=== PATIENT | female | born 1940 | race Caucasian/White ===

== ENCOUNTER 2018-02-23 18:26 | Emergency (ER) | payer MEDICARE ==
[~2018-02-23] VITALS: Ht 157.5 cm; Wt 85.0 kg
[~2018-02-23 18:26] MED LIST: ACYC400T PO; ALPR.25 PO; CHLO4TAB PO; CLON.1 PO; COZA50TA PO; DILT1TAB2 PO; HYDR-3533 PO; LEXA10TA PO; MONT10TA2 PO; ZANT150T2 PO
[2018-02-23 18:51] VITALS: BP 134/62; PULSE 74; RESP 16; TEMP 97.9; O2SAT 97
[2018-02-23 23:11] LABS: AUTOMATED NEUTROPHIL # 10.3 TH/MM3 (1.8-7.7); BASOPHIL # 0.1 TH/MM3 (0-0.2); BASOPHIL % 0.4 % (0.0-2.0); EOSINOPHIL # 0.1 TH/MM3 (0-0.4); EOSINOPHIL % 0.5 % (0.0-4.0); HEMATOCRIT 41.2 % (35.0-46.0); HEMOGLOBIN 13.8 GM/DL (11.6-15.3); LYMPH % 14.6 % (9.0-44.0); LYMPHOCYTE # 1.9 TH/MM3 (1.0-4.8); MEAN CELL VOLUME 87.3 FL (80.0-100.0); MEAN CORPUSCULAR HEMOGLOBIN 29.1 PG (27.0-34.0); MEAN CORPUSCULAR HGB CONC 33.4 % (32.0-36.0); MONO % 6.3 % (0.0-8.0); MONOCYTE # 0.8 TH/MM3 (0-0.9); NEUT % 78.2 % (16.0-70.0); PLATELET COUNT 230 TH/MM3 (150-450); RED BLOOD COUNT 4.72 MIL/MM3 (4.00-5.30); RED CELL DISTRIBUTION WIDTH 13.3 % (11.6-17.2); WHITE BLOOD COUNT 13.2 TH/MM3 (4.0-11.0)
[2018-02-23 23:31] LABS: ALBUMIN 3.8 GM/DL (3.4-5.0); ALT (GPT) 30 U/L (10-53); AST (GOT) 13 U/L (15-37); BICARBONATE 26.5 MEQ/L (21.0-32.0); BLOOD UREA NITROGEN 10 MG/DL (7-18); CHLORIDE 103 MEQ/L (98-107); CREATININE 0.83 MG/DL (0.50-1.00); GLOMERULAR FILTRATION RATE 67 ML/MIN (>89); GLUCOSE,RANDOM 124 MG/DL (74-106); SODIUM (NA) 139 MEQ/L (136-145)
[2018-02-23 23:31] LABS: BILIRUBIN, URINE NEG (NEG); BLOOD, URINE NEG (NEG); GLUCOSE,URINE NEG (NEG); KETONE, URINE NEG (NEG); NITRITE,URINE NEG (NEG); SQUAMOUS EPITHELIAL CELL URINE <1 /hpf (0-5); URINE COLOR YELLOW (YELLW/STRAW); URINE LEUKOCYTE ESTERASE NEG (NEG)
[2018-02-23 23:33] LABS: ALKALINE PHOSPHATASE 57 U/L (45-117); TOTAL BILIRUBIN ADULT 0.4 MG/DL (0.2-1.0); TOTAL PROTEIN 7.4 GM/DL (6.4-8.2)
--- NOTE | 2018-02-23 23:38 | RADRPT ---
EXAM DATE: 02/23/2018 11:19 PM EDT AGE/SEX: 77 years / Female INDICATIONS: Abdominal and back pain. CLINICAL DATA: This is the patient's initial encounter. Patient reports that signs and symptoms have been present for 1 day and indicates a pain score of 7/10. MEDICAL/SURGICAL HISTORY: Cardiovascular disease. Diabetes mellitus type II. Diverticulitis. Fusion, lumbar. RADIATION DOSE: 8.04 CTDI (mGy) COMPARISON: POI, CT ABDOMEN AND PELVIS W AND W/O CONTRAST, 11/22/2016. . TECHNIQUE: Multiple contiguous axial images were obtained through the abdomen. Images were obtained using multiple row detector helical technique. Using dose reduction techniques, radiation dose was ke pt as low as reasonably achievable to obtain optimal diagnostic quality images. FINDINGS: Lower Lungs: The visualized lower lungs are clear. Liver: Status post cholecystectomy. Liver within normal limits. Spleen: Homogeneous density without enlargement. Pancreas: Unremarkable without mass or calcification. Kidneys: Right upper pole exophytic cyst unchanged. 1 cm faint hyperdense mass in the midpole the ri ght kidney is grossly unchanged. Nonobstructing calculus in the midpole of the right kidney measuring 3 mm is unchanged. No evidence of hydronephrosis. Left kidney within normal limits. Adrenal Glands: Unremarkable. Aorta: The aorta and proximal iliac vessels are grossly unremarkable without aneurysmal dilation. Bowel/Mesentery: Numerous colonic diverticula. Moderate severity ill-defined inflammatory changes of the left lower quadrant adjacent to the mid sigmoid colon. Ill-defined sigmoid colon wall thickening in this region. No rounded organized fluid collection or free air identified. No evidence of bowel d ilatation. Abdominal Wall: Intact. Retroperitoneum: No evidence of adenopathy in the retrocrural, para-aortic, or deep pelvic regions. Bladder: Contours are smooth. Reproductive Organs: No abnormal masses or calcifications seen. Inguinal: The inguinal region is unremarkable without evidence of adenopathy. Bony Structures: Postsurgical findings again seen in the lumbar region. CONCLUSION: 1. Acute diverticulitis of the mid sigmoid colon. No evidence of drainable abscess or free air. 2. No change in nonobstructing right renal calculus. Electronically signed by: Thompson Harris MD 02/23/2018 11:37 PM EDT
[2018-02-24] MEDS ORDERED: NORC5TAB PO (00:32)
[2018-02-24] MEDS ORDERED: CIPR-9 PO (00:32)
[2018-02-24] MEDS ORDERED: METR-1 PO (00:32)
--- NOTE | 2018-02-24 00:33 | PD ---
HPI Chief Complaint: Abdominal Pain Time Seen by Provider: 22:23 Travel History International Travel<30 days: No Contact w/Intl Traveler<30days: No Traveled to known affect area: No History of Present Illness HPI Patient is a 77-year-old female comes in complaining of back pain and abdominal pain. She says she has had the back pain for a long time. She had a surgery in 2013 for this, and she says that she has had the pain and radiation down her leg since then. She says she had a fall in May which has made it worse. She says she is supposed to go see a pain management doctor, but she started to have abdominal pain last night. She was told to have a CAT scan done to rule out any abdominal issues prior to seeing the pain management doctor. She denies fever chills. She denies nausea or vomiting. She says she has had very small bowel movements in the past 2 days. She denies any urinary symptoms. Severity is mild to moderate. PFSH Past Medical History Arthritis: Yes (back and neck) Asthma: Yes Anxiety: Yes Heart Rhythm Problems: Yes Cancer: Yes (BASAL CELL SKIN) Cardiovascular Problems: Yes High Cholesterol: Yes Cerebrovascular Accident: Yes (TIA'S) Diabetes: No Diminished Hearing: No Diverticulitis: Yes (AUG 2006 ) Endocrine: Yes Gastrointestinal Disorders: Yes GERD: Yes Genitourinary: No Hepatitis: No Hiatal Hernia: Yes Hypertension: Yes Immune Disorder: Yes (IGA DEFICIENCY) Musculoskeletal: Yes (ARTHRITIS, BACK PROBLEMS) Neurologic: Yes Psychiatric: Yes Reproductive: No Respiratory: Yes Integumentary: Yes (SKIN CANCER REMOVED 07/14/08) Immunizations Current: Yes Sleep Apnea: Yes Thyroid Disease: Yes ?: Not Menopausal: Yes Past Surgical History Abdominal Surgery: Yes (CHOLECYSTECTOMY) AICD: No Body Medical Devices: CLIPS FROM GALLBLADDER SURGERY Cholecystectomy: Yes Joint Replacement: No Oral Surgery: Yes (TONSILLECTOMY 1945) Pacemaker: No Tonsillectomy: Yes (1945) Other Surgery: Yes Social History Alcohol Use: Yes (OCCASIONALLY) Tobacco Use: No Substance Use: No Allergies-Medications (Allergen,Severity, Reaction): Coded Allergies: MRI PRECAUTION (Verified Allergy, Severe, SOB, 10/16/16) Sulfa (Sulfonamide Antibiotics) (Unverified Allergy, Severe, HIVES, ) bacitracin (Unverified Allergy, Severe, RED, SWOLLEN, 04/29/17) diatrizoate meglumine (Unverified Allergy, Severe, SOB, 04/29/17) MRI CONTRAST ONLY, NOT ALLERGIC TO IODINATED CONTRAST gadobenic acid (Unverified Allergy, Severe, SOB, 04/29/17) MRI CONTRAST ONLY, NOT ALLERGIC TO IODINATED CONTRAST gadodiamide (Unverified Allergy, Severe, SOB, 04/29/17) MRI CONTRAST ONLY, NOT ALLERGIC TO IODINATED CONTRAST gadoteridol (Unverified Allergy, Severe, SOB, 04/29/17) MRI CONTRAST ONLY, NOT ALLERGIC TO IODINATED CONTRAST gramicidin D (Unverified Allergy, Severe, RED, SWOLLEN, 04/29/17) hydrocodone (Unverified Allergy, Severe, ITCHING, 04/29/17) iodixanol (Unverified Allergy, Severe, SOB, 04/29/17) MRI CONTRAST ONLY, NOT ALLERGIC TO IODINATED CONTRAST iohexol (Unverified Allergy, Severe, SOB, 04/29/17) MRI CONTRAST ONLY, NOT ALLERGIC TO IODINATED CONTRAST morphine (Unverified Allergy, Severe, HIVES, 04/29/17) neomycin (Unverified Allergy, Severe, RED, SWOLLEN, 04/29/17) peanut (Unverified Allergy, Severe, SOB, 04/29/17) polymyxin B (Unverified Allergy, Severe, RED, SWOLLEN, 04/29/17) sulfamethoxazole (Unverified Allergy, Severe, 04/29/17) trimethoprim (Unverified Allergy, Severe, 04/29/17) acetaminophen (Unverified Adverse Reaction, Severe, DIZZINESS, CONFUSION, MEMORY LOSS, 04/29/17) oxycodone (Unverified Adverse Reaction, Severe, DIZZINESS, CONFUSION, MEMORY LOSS, 04/29/17) Reported Meds & Prescriptions Reported Meds & Active Scripts Active Reported Acyclovir 400 Mg Tab Unknown Dose PO BID PRN Singulair (Montelukast Sodium) 10 Mg Tab 10 Mg PO DAILY Lortab (Hydrocodone-Acetaminophen) 5-325 Mg Tab 1 Tab PO TID PRN Cardizem LA (Diltiazem ER 24 HR) 240 Mg Christian[place] 240 Mg PO BID Chlor-Trimeton (Chlorpheniramine Maleate) 4 Mg Tab 4 Mg PO BID PRN Catapres (Clonidine) 0.1 Mg Tab 0.1 Mg PO HS Cozaar (Losartan Potassium) 50 Mg Tab 50 Mg PO BID Lexapro (Escitalopram Oxalate) 10 Mg Tab 10 Mg PO DAILY Xanax (Alprazolam) 0.25 Mg Tab 0.25 Mg PO DAILY PRN Zantac (Ranitidine HCl) 150 Mg Tab 150 Mg PO HS Review of Systems Except as stated in HPI: all other systems reviewed are Neg General / Constitutional: No: Fever, Chills HENT: No: Headaches, Lightheadedness Cardiovascular: No: Chest Pain or Discomfort Respiratory: No: Shortness of Breath Gastrointestinal: Positive: Abdominal Pain, No: Nausea, Vomiting Musculoskeletal: Positive: Pain Skin: No Rash, No Change in Pigmentation Neurologic: No: Weakness, Dizziness Physical Exam Narrative GENERAL: Awake and alert, no acute distress. SKIN: Focused skin assessment warm/dry. No wounds or signs of infection. HEAD: Atraumatic. Normocephalic. EYES: Pupils equal and round. No scleral icterus. ENT: Mucous membranes pink and moist. NECK: Trachea midline. No JVD. CARDIOVASCULAR: Regular rate and rhythm. No murmur appreciated. RESPIRATORY: No accessory muscle use. Clear to auscultation. Breath sounds equal bilaterally. GASTROINTESTINAL: Abdomen soft, nondistended. Tender to palpation of the middle of the abdomen. No rebound or guarding. MUSCULOSKELETAL: No obvious deformities. No clubbing. No cyanosis. No edema. NEUROLOGICAL: Awake and alert. No obvious cranial nerve deficits. Motor grossly within normal limits. Normal speech. PSYCHIATRIC: Appropriate mood and affect; insight and judgment normal. Data Data Last Documented VS Vital Signs Date Time Temp Pulse Resp B/P (MAP) Pulse Ox O2 Delivery O2 Flow Rate FiO2 02/23/18 18:51 97.9 74 16 134/62 (86) 97 Orders Orders Iv Access Insert/Monitor (02/23/18 22:48) Complete Blood Count With Diff (02/23/18 22:48) Comprehensive Metabolic Panel (02/23/18 22:48) Ct Abd/Pel W/O Iv Contrast (02/23/18 ) Urinalysis - C+S If Indicated (02/23/18 23:15) Labs Laboratory Tests Test 02/23/18 23:00 02/23/18 23:20 White Blood Count 13.2 TH/MM3 Red Blood Count 4.72 MIL/MM3 Hemoglobin 13.8 GM/DL Hematocrit 41.2 % Mean Corpuscular Volume 87.3 FL Mean Corpuscular Hemoglobin 29.1 PG Mean Corpuscular Hemoglobin Concent 33.4 % Red Cell Distribution Width 13.3 % Platelet Count 230 TH/MM3 Mean Platelet Volume 9.0 FL Neutrophils (%) (Auto) 78.2 % Lymphocytes (%) (Auto) 14.6 % Monocytes (%) (Auto) 6.3 % Eosinophils (%) (Auto) 0.5 % Basophils (%) (Auto) 0.4 % Neutrophils # (Auto) 10.3 TH/MM3 Lymphocytes # (Auto) 1.9 TH/MM3 Monocytes # (Auto) 0.8 TH/MM3 Eosinophils # (Auto) 0.1 TH/MM3 Basophils # (Auto) 0.1 TH/MM3 CBC Comment DIFF FINAL Differential Comment Blood Urea Nitrogen 10 MG/DL Creatinine 0.83 MG/DL Random Glucose 124 MG/DL Total Protein 7.4 GM/DL Albumin 3.8 GM/DL Calcium Level 9.0 MG/DL Alkaline Phosphatase 57 U/L Aspartate Amino Transf (AST/SGOT) 13 U/L Alanine Aminotransferase (ALT/SGPT) 30 U/L Total Bilirubin 0.4 MG/DL Sodium Level 139 MEQ/L Potassium Level 3.8 MEQ/L Chloride Level 103 MEQ/L Carbon Dioxide Level 26.5 MEQ/L Anion Gap 10 MEQ/L Estimat Glomerular Filtration Rate 67 ML/MIN Urine Color YELLOW Urine Turbidity CLEAR Urine pH 6.0 Urine Specific [place] 1.013 Urine Protein NEG mg/dL Urine Glucose (UA) NEG mg/dL Urine Ketones NEG mg/dL Urine Occult Blood NEG Urine Nitrite NEG Urine Bilirubin NEG Urine Urobilinogen LESS THAN 2.0 MG/DL Urine Leukocyte Esterase NEG Urine WBC 3 /hpf Urine Squamous Epithelial Cells <1 /hpf Microscopic Urinalysis Comment CULT NOT INDICATED MDM Medical Decision Making Medical Screen Exam Complete: Yes Emergency Medical Condition: Yes Medical Record Reviewed: Yes Differential Diagnosis Diverticulitis versus UTI versus colitis versus chronic pain Narrative Course Patient is a 77-year-old female comes in complaining of back pain and abdominal pain. The back pain is chronic. The abdominal pain started last night. Exam shows tenderness to palpation of the middle of the abdomen. IV established, labs sent. White blood cell count is slightly elevated to 13. CT abdomen pelvis performed shows diverticulitis. Last 24 hours Impressions Abdomen/Pelvis CT 02/23/18 0000 Signed Impressions: CONCLUSION: 1. Acute diverticulitis of the mid sigmoid colon. No evidence of drainable abs cess or free air. 2. No change in nonobstructing right renal calculus. Patient will be discharged with prescriptions for Cipro and Flagyl. Advised not to drink alcohol taking these medications. She requested a prescription for pain medication. She says she is not allergic to hydrocodone. Given a prescription for a few pills. Advised follow-up with a primary care doctor. Advised return to the ED as needed for any worsening symptoms. Diagnosis Primary Impression: Diverticulitis Patient Instructions: Diverticulitis (ED), General Instructions Additional Instructions: Take all of your antibiotics. Drink plenty of fluids. Follow-up with your doctors. Return to the ED as needed for any worsening symptoms. Scripts Hydrocodone-Acetaminophen ([place]) 5 Mg-325 Mg Tab 1 TAB PO Q6H Y for PAIN, #10 TAB 0 Refills Prov: Lian Dexter MD 02/24/18 Ciprofloxacin (Cipro) 500 Mg Tab 500 MG PO BID for Infection for 7 Days, #14 TAB 0 Refills Prov: Lian Dexter MD 02/24/18 Metronidazole (Flagyl) 500 Mg Tab 500 MG PO TID for Infection for 7 Days, TAB 0 Refills Prov: Lian Dexter MD 02/24/18 Disposition: 01 DISCHARGE HOME Condition: Stable Lian Dexter MD Feb 24, 2018 00:32
== END 2018-02-24 00:45 | disposition home or self-care (01) ==
LOC: NEPD 18:26
DX: K57.32 Diverticulitis of large intestine without perforation or abscess without bleeding (principal); M54.9 Dorsalgia, unspecified
CPT/HCPCS: 74176; 80053; 81001; 85025; 99284